=== PATIENT | female | born 1960 | race Caucasian/White ===

== ENCOUNTER 2016-05-21 14:14 | Day surgery (SDC) | payer BC ==
[~2016-05-21 14:14] MED LIST: Depo-Medrol 40 MG/ML IM ONE; KEFZOL 1 GM IJ ONE; Sensorcaine 0.25% 10 ML IJ ONE; Sodium Chloride 0.9(Preservative Free) 10 ML IJ ONE
[2016-05-21 16:33] VITALS: BP 117/76; PULSE 94; O2SAT 94
[2016-05-21] MEDS ORDERED: Lactated Ringers 1,000 ML IV SCH (17:00)
--- NOTE | 2016-05-22 08:43 | XRAY ---
8 seconds fluoroscopy time in surgery for caudal LOUIS.
--- NOTE | 2016-05-22 11:00 | XRAY ---
Indication: Caudal LOUIS. Intraoperative fluoroscopy was provided for 8 seconds. 1 digital spot lateral sacrum image submitted for interpretation demonstrates posterior spinal needle with the tip projecting mid sacral level. Correlate with intraoperative findings/report.
== END 2016-05-21 17:58 | disposition home or self-care (01) ==
LOC: SDC-PAIN 14:14
PROVIDERS: ATTEND Pain Medicine Interventional Pain Medicine
DX: M54.16 Radiculopathy, lumbar region (principal); M48.02 Spinal stenosis, cervical region
CPT/HCPCS: 62323; 72020; 77003; J0690; J1030; Q9967

== ENCOUNTER 2016-08-04 16:25 | Emergency (ER) | payer BC ==
[2016-08-04 16:36] VITALS: BP 129/73; O2SAT 98
[2016-08-04] MEDS ORDERED: Adacel Vial IM ONE ×2 (16:51→16:54)
--- NOTE | 2016-08-04 16:51 | ERPHSYRPT ---
- History of Present Illness Time Seen by Provider: 08/04/16 16:37 Source: patient, family Exam Limitations: no limitations Patient Subjective Stated Complaint: pt got stuck with andres dale thorn today and now is worried finger is infected , she states her thumb is purple Triage Nursing Assessment: right thumb with medicine on finger, medicine washed off.no redenss or swelling no thorn seen , has bruising noted to thumb Physician History: The patient is a 56-year-old female who is right-handed and stuck her right thumb on a andres dale torn this morning about 6 hours ago. She has pain in her right thumb. She went to [facility] to have it looked at but was unable to see them today. She was told to come to the emergency room. Her tetanus vaccination is greater than 5 years. Her past medical history is hypertension, migraine headache, and anxiety. Timing/Duration: today, hour(s) (6) Quality: painful Severity: mild Location: extremities (right thumb) Possible Causes: other (andres thorn) Associated Symptoms: other (FB) Allergies/Adverse Reactions: latex Allergy (Intermediate, Verified 08/04/16 16:37) Rash sumatriptan [From Imitrex] Allergy (Intermediate, Verified 08/04/16 16:37) Rash, swallowing diff sumatriptan succinate [From Imitrex] Allergy (Intermediate, Verified 08/04/16 16 :37) Rash Iodinated Contrast Media - Oral and Allergy (Verified 08/04/16 16:37) rash, break out, itching morphine Adverse Reaction (Intermediate, Verified 08/04/16 16:37) Nausea Home Medications: Cetirizine HCl 10 mg PO DAILY 11/14/15 [History] Hydrocodone Bit/Acetaminophen [Hydrocodon-Acetaminoph 7.5-325] 1 each PO Q4HPRN PRN 11/14/15 [History] Escitalopram Oxalate [Lexapro] 40 mg PO DAILY 11/20/15 [History] Alprazolam 0.25 mg [xanAX 0.25 MG] 0.25 mg PO UD PRN 02/27/16 [History] Isomethepten/Caf/Acetaminophen [Prodrin Caplet] 1 each PO UD 02/27/16 [History] Lamotrigine [Lamictal] 75 mg PO DAILY 02/27/16 [History] Cyanocobalamin (Vitamin B-12) [Vitamin B12] 2,500 mcg PO DAILY 04/25/16 [History ] Lansoprazole [Prevacid] 30 mg PO DAILY 04/25/16 [History] Linaclotide [Linzess] 290 mcg PO BID 04/25/16 [History] Acyclovir 400 mg PO UD 05/21/16 [History] Modafinil 100 mg [Provigil 100MG Tablet] 100 mg PO UD 05/21/16 [History] Modafinil 100 mg [Provigil 100MG Tablet] 200 mg PO UD 05/21/16 [History] Promethazine HCl 25 mg [Phenergan 25 mg] 25 mg PO Q4HPRN PRN 05/21/16 [ History] Hx Tetanus, Diphtheria Vaccination/Date Given: No Hx Influenza Vaccination/Date Given: Yes Hx Pneumococcal Vaccination/Date Given: No Immunizations Up to Date: Yes - Review of Systems Constitutional: No Fever, No Chills Eyes: No Symptoms Ears, Nose, & Throat: No Symptoms Respiratory: No Cough, No Dyspnea Cardiac: No Chest Pain, No Edema, No Syncope Abdominal/Gastrointestinal: No Abdominal Pain, No Nausea, No Vomiting, No Diarrhea Genitourinary Symptoms: No Dysuria Musculoskeletal: No Back Pain, No Neck Pain Skin: Other (FB) Neurological: No Dizziness, No Focal Weakness, No Sensory Changes Psychological: No Symptoms Endocrine: No Symptoms Hematologic/Lymphatic: No Symptoms Immunological/Allergic: No Symptoms All Other Systems: Reviewed and Negative - Past Medical History Pertinent Past Medical History: Yes Neurological History: Migraines ENT History: No Pertinent History Cardiac History: No Pertinent History Respiratory History: No Pertinent History Endocrine Medical History: No Pertinent History Musculoskeletal History: No Pertinent History GI Medical History: No Pertinent History History: No Pertinent History Psycho-Social History: Anxiety Female Reproductive Disorders: Endometriosis - Past Surgical History Past Surgical History: Yes Neuro Surgical History: No Pertinent History Cardiac: No Pertinent History Respiratory: No Pertinent History Gastrointestinal: No Pertinent History Genitourinary: No Pertinent History Musculoskeletal: Orthopedic Surgery Female Surgical History: Hysterectomy Other Surgical History: left knee x four scopes and acl,right knee lap.scope x two, back jan 2011 L4-L5 bone scraping - Social History Smoking Status: Current every day smoker How long have you smoked: 35yrs Exposure to second hand smoke: Yes Drug Use: none Patient Lives Alone: No - Female History Hx Last Menstrual Period: hyster - Nursing Vital Signs Nursing Vital Signs: Initial Vital Signs Temperature 98.1 F Temperature Source Oral Pulse Rate 78 Respiratory Rate 16 Blood Pressure [Right Arm] 129/73 Pain Intensity 3 - Physical Exam General Appearance: no apparent distress, alert Eye Exam: PERRL/EOMI, eyes nml inspection Ears, Nose, Throat Exam: normal ENT inspection, pharynx normal, moist mucous membranes Neck Exam: normal inspection, non-tender, supple, full range of motion Respiratory Exam: normal breath sounds, lungs clear, No respiratory distress Cardiovascular Exam: regular rate/rhythm, normal heart sounds Gastrointestinal/Abdomen Exam: soft, mass, No tenderness Pelvic Exam: not done Rectal Exam: not done Back Exam: normal inspection, normal range of motion, No CVA tenderness, No vertebral tenderness Extremity Exam: normal inspection, normal range of motion Neurologic Exam: alert, oriented x 3, cooperative, normal mood/affect, sensation nml, No motor deficits Skin Exam: other (Examination of the palmar surface of the right thumb reveals an extremely tiny foreign body consistent with a small andres thorn embedded in the skin.) SpO2 Interpretation: normal SpO2: 98 Oxygen Delivery: Room Air - Progress Progress: improved Progress Note: 08/04/16 16:56 A 22-gauge needle was used to carefully excised and removed the tiny roast on the palmar surface of the superficial skin on the right thumb. The patient tolerated the procedure well. There are no complications. - Departure Time of Disposition: 16:57 Departure Disposition: Home Clinical Impression: Foreign body in skin Condition: Stable Critical Care Time: No Additional Instructions: A tiny thorn was removed from your right thumb in the ER. You were given a tetanus vaccination in the ER. Keep the area clean and dry. Take Tylenol and ibuprofen as needed for pain.
[2016-08-04 17:10] VITALS: PULSE 70
== END 2016-08-04 17:09 | disposition home or self-care (01) ==
LOC: ED 16:25
DX: S60.351A Superficial foreign body of right thumb, initial encounter (principal); W22.8XXA Striking against or struck by other objects, initial encounter
CPT/HCPCS: 90471; 90715; 99284

== ENCOUNTER 2016-08-20 08:29 | Day surgery (SDC) | payer BC ==
[~2016-08-20 08:29] MED LIST changes: +DIPRIVAN 200 MG/20 ML IV ONE; -Depo-Medrol 40 MG/ML IM ONE; -KEFZOL 1 GM IJ ONE; +Kenalog-40 IM ONE; +Lactated Ringers 1,000 ML IV ONE; -Sodium Chloride 0.9(Preservative Free) 10 ML IJ ONE
--- NOTE | 2016-08-20 11:18 | XRAY ---
Indication: Left L3-S1 MBB. Intraoperative fluoroscopy was provided for 7 seconds. Single digital spot image submitted for interpretation demonstrates posterior spinal needles with the tips projecting over the expected course of the left L3-S1 nerve roots. Correlate with intraoperative findings/report.
--- NOTE | 2016-08-20 14:56 | XRAY ---
7 seconds fluoroscopy time in surgery for left L3-S1 MBB.
== END 2016-08-20 11:15 | disposition home or self-care (01) ==
LOC: SDC-PAIN 08:29
PROVIDERS: ATTEND Pain Medicine Interventional Pain Medicine
DX: M54.16 Radiculopathy, lumbar region (principal); M48.02 Spinal stenosis, cervical region; Z79.891 Long term (current) use of opiate analgesic
CPT/HCPCS: 64493; 64494; 64495; 72020; 77003; J2704; J3301

== ENCOUNTER 2017-03-03 18:51 | Emergency (ER) | payer OTHER ==
[2017-03-03 19:13] VITALS: O2SAT 95
[2017-03-03] MEDS ORDERED: TORAdol 30 mg Injection IV ONE (20:23)
[2017-03-03] MEDS ORDERED: Sodium Chloride 0.9% 1000 ML 1,000 ML IV STA (20:25)
--- NOTE | 2017-03-03 20:30 | ERPHSYRPT ---
- History of Present Illness Time Seen by Provider: 03/03/17 20:20 Historian: patient Exam Limitations: no limitations Patient Subjective Stated Complaint: Patient stated that she started having pain on Thursday and went to Dr. Hansen yesterday and did a block on the left side of back due to other pain she has. She told him about the pain on the right and he said that they weren't going to worry about that side right now. The pain got to severe tonite and couldn't get any relief. Pt also applied a lidocaine patch to her right upper thigh. Triage Nursing Assessment: Pt A&O x3, came in with a wheelchair, walks with a antoine slowly, lungs clear, skin clear, deep bilateral dorsal pedis pulses, appears to be in severe pain in the RLQ of abdomen especially when palpated. Patient took pain pill and sleeping pill at approximately 1730 tonite. Patient is also wearing a lidocaine patch. Physician History: 56-year-old white female with history of migraines diverticulosis irritable bowel endometriosis and anxiety Who recently saw Dr. Parker for pain control and injection in her back. Arrives with complaint of pain in her right lower quadrant right flank radiating down her right leg symptoms since Thursday 3 days ago. Patient states she was seen by Dr. Hansen yesterday and received the injection in her back. Patient has not had any vomiting denies dysuria hematuria Patient does use a lidocaine patch she is also on Canute. Past medical history includes migraines, diverticulosis, irritable bowel, endometriosis, anxiety, chronic pain Past surgical history includes hysterectomy, orthopedic surgery left knee surgery back surgery Timing/Duration: day(s) Activities at Onset: none (3 days) Quality: aching, cramping Abdominal Pain Onset Location: RLQ, other (right flank) Pain Radiation: flank Severity of Pain-Max: moderate Severity of Pain-Current: moderate Modifying Factors: Improves With: other (injection in back for chronic pain yesterday, Canute) Associated Symptoms: back, No fever/chills, No fatigue, No headache, No heartburn, No loss of appetite, No nausea, No neck pain, No rash, No shortness of breath, No syncope, No vomiting, No weakness Previous symptoms: no prior history Allergies/Adverse Reactions: latex Allergy (Intermediate, Verified 08/04/16 16:37) Rash sumatriptan [From Imitrex] Allergy (Intermediate, Verified 08/04/16 16:37) Rash, swallowing diff sumatriptan succinate [From Imitrex] Allergy (Intermediate, Verified 08/04/16 16 :37) Rash Iodinated Contrast- Oral and IV Dye Allergy (Verified 08/04/16 16:37) rash, break out, itching morphine Adverse Reaction (Intermediate, Verified 08/04/16 16:37) Nausea Home Medications: Lubiprostone [Amitiza] 24 mcg PO DAILY 12/01/16 [History] Venlafaxine HCl ER 75 mg [Effexor XR 75 MG] 150 mg PO DAILY 12/01/16 [ History] Bisacodyl [Dulcolax] 5 mg PO 03/03/17 [History] Buspirone HCl [Buspar] 10 mg PO TID 03/03/17 [History] Cetirizine HCl [Allergy Relief] 10 mg PO DAILY 03/03/17 [History] Eszopiclone 2 mg PO DAILY 03/03/17 [History] Hydrocodone Bit/Acetaminophen [Hydrocodon-Acetaminophn 10-325] 1 each PO Q4- 6HPRN PRN 03/03/17 [History] Lamotrigine [Lamotrigine ER] 150 tab PO DAILY 03/03/17 [History] Nicotine [Nicotine Patch] 1 each DAILY 03/03/17 [History] Spironolactone 25 mg PO DAILY 03/03/17 [History] Hx Tetanus, Diphtheria Vaccination/Date Given: No Hx Influenza Vaccination/Date Given: Yes Hx Pneumococcal Vaccination/Date Given: No - Review of Systems Constitutional: No Fever, No Chills Eyes: No Symptoms Ears, Nose, & Throat: No Symptoms Respiratory: No Cough, No Dyspnea Cardiac: No Chest Pain, No Edema, No Syncope Abdominal/Gastrointestinal: Abdominal Pain, No Nausea, No Vomiting, No Diarrhea , No Constipation, No Hematemesis, No Hematochezia, No Melena, No Dysphagia, No Appetite Changes Genitourinary Symptoms: Flank Pain (right flank pain), No Dysuria, No Frequency , No Hematuria, No Hesitancy, No Incontinence, No Urgency, No Urinary Retention , No Menorrhagia, No , No Vaginal Bleeding, No Vaginal Discharge, No Vaginal Itching Musculoskeletal: Back Pain (right flank pain ) Skin: No Rash Neurological: No Dizziness, No Focal Weakness, No Sensory Changes Psychological: No Symptoms Endocrine: No Symptoms All Other Systems: Reviewed and Negative - Past Medical History Pertinent Past Medical History: Yes Neurological History: Migraines ENT History: No Pertinent History Cardiac History: No Pertinent History Respiratory History: No Pertinent History Endocrine Medical History: No Pertinent History Musculoskeletal History: No Pertinent History GI Medical History: Diverticulosis, Irritable Bowel History: No Pertinent History Psycho-Social History: Anxiety Female Reproductive Disorders: Endometriosis - Past Surgical History Past Surgical History: Yes Neuro Surgical History: No Pertinent History Cardiac: No Pertinent History Respiratory: No Pertinent History Gastrointestinal: No Pertinent History Genitourinary: No Pertinent History Musculoskeletal: Orthopedic Surgery Female Surgical History: Hysterectomy Other Surgical History: left knee x four scopes and acl,right knee lap.scope x two, back jan 2011 L4-L5 bone scraping - Social History Smoking Status: Current every day smoker How long have you smoked: 35yrs Exposure to second hand smoke: Yes Drug Use: none Patient Lives Alone: Yes - Nursing Vital Signs Nursing Vital Signs: Initial Vital Signs Temperature 98.8 F 03/03/17 19:12 Pulse Rate 111 H 03/03/17 19:12 Blood Pressure 125/83 03/03/17 19:12 O2 Sat by Pulse Oximetry 95 03/03/17 19:12 Pain Scale Pain Intensity 8 - Physical Exam General Appearance: mild distress Eye Exam: PERRL/EOMI, eyes nml inspection Ears, Nose, Throat Exam: normal ENT inspection, pharynx normal, moist mucous membranes Neck Exam: normal inspection, non-tender, supple, full range of motion Respiratory Exam: normal breath sounds, lungs clear, No respiratory distress Cardiovascular Exam: regular rate/rhythm, normal heart sounds Gastrointestinal/Abdomen Exam: soft, normal bowel sounds, tenderness (right lower quadrant tenderness), No distention, No mass, No guarding, No ecchymosis, No pulsatile mass, No rebound, No hernia, No hepatomegaly, No organomegaly, No splenomegaly Back Exam: CVA tenderness (right flank tenderness) Extremity Exam: normal inspection, normal range of motion, pelvis stable Neurologic Exam: alert, oriented x 3, cooperative, normal mood/affect, nml cerebellar function, sensation nml, No motor deficits Skin Exam: normal color, warm, dry SpO2 Interpretation: normal (95%) SpO2: 95 Oxygen Delivery: Room Air - Course Nursing assessment & vital signs reviewed: Yes - CT Exams Abdomen/Pelvis CT Interpretation: Discussed w/radiologist (CT abdomen and pelvis: Compared to January, new moderate diffuse fecal stasis without obstruction. Stable 1 cm left adrenal adenoma. Normal appendix and ileocecal junction. Nothing acute. Also tiny 5 mm left lobe hepatic cyst) Ordered Tests: Active Orders 24 hr Category Date Time Status IV Insertion STAT Care 03/03/17 20:23 Active ABDOMEN AND PELVIS W/0 CONTRAS [CT] Stat Exams 03/03/17 20:24 Taken AMYLASE Stat Lab 03/03/17 20:38 Completed CBC W DIFF Stat Lab 03/03/17 20:38 Completed CMP Stat Lab 03/03/17 20:38 Completed CULTURE,URINE Stat Lab 03/03/17 22:08 Received LIPASE Stat Lab 03/03/17 20:38 Completed UA W/ MICROSCOPIC Stat Lab 03/03/17 22:08 Completed Medication Summary Discontinued Medications Generic Name Dose Route Start Last Admin Trade Name Travis PRN Reason Stop Dose Admin Fentanyl Citrate 50 mcg 03/03/17 22:17 03/03/17 22:25 Sublimaze 100 Mcg/2 Ml IV 03/03/17 22:18 50 mcg STAT ONE Administration Fentanyl Citrate Confirm 03/03/17 22:23 Sublimaze 100 Mcg/2 Ml Administered 03/03/17 22:24 Dose 100 mcg .ROUTE .STK-MED ONE Sodium Chloride 1,000 mls @ 999 mls/hr 03/03/17 20:25 03/03/17 20:35 Sodium Chloride 0.9% 1000 Ml IV 03/03/17 21:25 999 mls/hr .Q1H1M STA Administration Sodium Chloride Confirm 03/03/17 20:31 Sodium Chloride 0.9% 1000 Ml Administered 03/03/17 20:32 Dose 1,000 mls @ ud .ROUTE .STK-MED ONE Ketorolac Tromethamine 30 mg 03/03/17 20:23 03/03/17 20:35 Toradol 30 Mg Injection IV 03/03/17 20:24 30 mg STAT ONE Administration Ketorolac Tromethamine Confirm 03/03/17 20:31 Toradol 30 Mg Injection Administered 03/03/17 20:32 Dose 30 mg .ROUTE .STK-MED ONE Lab/Rad Data: Laboratory Result Diagrams 03/03/17 20:38 03/03/17 20:38 Laboratory Results 03/03/17 03/03/17 03/03/17 Range/Units 22:08 20:38 20:38 WBC 7.2 (4.0-10.5) K/mm3 RBC 4.37 (4.1-5.4) M/mm3 Hgb 13.5 (12.0-16.0) gm/dl Hct 41.4 (35-47) % MCV 94.7 (78-100) fl MCH 30.9 (26-32) pg MCHC 32.6 (32-36) g/dl RDW 12.6 (11.5-14.0) % Plt Count 274 (150-450) K/mm3 MPV 9.3 (6-9.5) fl Gran % 44.8 (36.0-66.0) % Lymphocytes % 43.4 (24.0-44.0) % Monocytes % 8.7 (0.0-12.0) % Eosinophils % 2.7 (0.00-5.0) % Basophils % 0.4 (0.0-0.4) % Basophils # 0.03 (0-0.4) Sodium 142 (136-145) mEq/L Potassium 3.9 (3.5-5.1) mEq/L Chloride 104 (98-107) mEq/L Carbon Dioxide 27.4 (21-32) mEq/L Anion Gap 14.2 (5-15) MEQ/L BUN 8 L (9-20) mg/dL Creatinine 0.70 (0.55-1.30) mg/dl Estimated GFR > 60 ML/MIN Glucose 96 (70-110) MG/DL Calcium 8.6 (8.5-10.1) mg/dL Total Bilirubin 0.10 L (0.2-1.0) mg/dL AST 14 L (15-37) U/L ALT 25 (12-78) U/L Alkaline Phosphatase 76 (46-116) U/L Serum Total Protein 7.1 (6.4-8.2) gm/dL Albumin 3.7 (3.4-5.0) g/dL Amylase 49 (25-115) U/L Lipase 119 (73-393) U/L Ur Collection Type VOID Urine Color YELLOW (YELLOW) Urine Appearance CLEAR (CLEAR) Urine pH 6.0 (5-6) Ur Specific [place] 1.015 (1.005-1.025) Urine Protein NEGATIVE (Negative) Urine Ketones NEGATIVE (NEGATIVE) Urine Blood TRACE NON-HEM (0-5) [place]/ul Urine Nitrite NEGATIVE (NEGATIVE) Urine Bilirubin NEGATIVE (NEGATIVE) Urine Urobilinogen NORMAL (0-1) mg/dL Ur Leukocyte Esterase TRACE (NEGATIVE) Urine Microscopic RBC 2-5 (0-2) /HPF Urine Microscopic WBC 2-5 (0-5) /HPF Ur Epithelial Cells MODERATE (FEW) /HPF Urine Bacteria MODERATE (NEGATIVE) /HPF Urine Mucus MODERATE (NEGATIVE) /HPF Urine Culture Reflexed YES (NO) Urine Glucose NEGATIVE (NEGATIVE) mg/dL Specimen Received 03/03/17 2210 - Progress Progress: improved Progress Note: 03/03/17 22:[address] Patient with essentially normal CT abdomen and pelvis appendix is normal CT shows fecal stasis with a tiny hepatic cyst. CBC CMP are normal. Awaiting urinalysis. Patient with improvement but not pain free after receiving Toradol. Patient chronically on Canute at home sees a pain certified residential medication aide. Considering patient continue Miralax at home consider Dulcolax clear fluids. Pain medicines as prescribed by her family doctor Patient states that she got a rash with morphine in the past 03/03/17 22:29 patient given fentanyl for pain. Labs are all negative. Will plan to discharge clear fluids, pain medicines as prescribed by her pain traffic control signaler patient will need to take Scarlet lax at home. Will write for Dulcolax. Patient will need to follow-up with her family doctor. 03/03/17 22:37 Patient feeling better with IV fluids, Toradol and fentanyl. Patient states she does not want any more pain medications at this time CT does not show any acute abdominal findings other than constipation. Patient does state that she has merely some Dulcolax at home. Patient also with hydrocodone 10/325 at home. Patient also on Lunesta at home. Will discharge patient. - Departure Time of Disposition: 22:39 Departure Disposition: Home Clinical Impression: History of chronic pain Abdominal pain Qualifiers: Abdominal location: right lower quadrant Qualified Code(s): R10.31 - Right lower quadrant pain Constipation Qualifiers: Constipation type: unspecified constipation type Qualified Code(s): K59.00 - Constipation, unspecified Condition: Fair Critical Care Time: No Referrals: Provider,Unknown [Primary Care Provider] - Instructions: Abdominal Pain-Adult Additional Instructions: Return home. Plenty of fluids clear fluids only 24-48 hours if abdominal pain. Canute as prescribed by your pain traffic control signaler Lunesta as prescribed by your family doctor Miralax 1 scoop in 8 ounces of water daily( you have this medication) Follow-up with your family doctor call tomorrow if no better. Return for acute distress or for severe symptoms.
[2017-03-03] MEDS ORDERED: Sodium Chloride 0.9% 1000 ML 1,000 ML ONE (20:31)
[2017-03-03] MEDS ORDERED: TORAdol 30 mg Injection ONE (20:31)
[2017-03-03 20:42] LABS: BASOPHIL % 0.4 % (0.0-0.4); Eosinophil % 2.7 % (0.00-5.0); Granulocytes % 44.8 % (36.0-66.0); Lymphocytes % 43.4 % (24.0-44.0); Mean Cell Volume 94.7 fl (78-100); Mean Corpuscular Hemoglobin 30.9 pg (26-32); Mean Platelet Volume 9.3 fl (6-9.5); Monocytes % 8.7 % (0.0-12.0); Platelet Count 274 K/mm3 (150-450); Red Blood Count 4.37 M/mm3 (4.1-5.4); Red Cell Distribution Width 12.6 % (11.5-14.0); White Blood Count 7.2 K/mm3 (4.0-10.5)
[2017-03-03 21:01] LABS: ALBUMIN 3.7 g/dL (3.4-5.0); ALKALINE PHOSPHATASE 76 U/L (46-116); ANION GAP 14.2 MEQ/L (5-15); BLOOD UREA NITROGEN 8 mg/dL (9-20); CHLORIDE 104 mEq/L (98-107); Carbon Dioxide 27.4 mEq/L (21-32); Glucose 96 MG/DL (70-110); LIPASE 119 U/L (73-393); Potassium 3.9 mEq/L (3.5-5.1); SGOT/AST 14 U/L (15-37); SGPT/ALT 25 U/L (12-78); SODIUM 142 mEq/L (136-145); Total Protein 7.1 gm/dL (6.4-8.2)
[2017-03-03] MEDS ORDERED: SUBLIMAZE 100 MCG/2 ML IV ONE (22:17)
[2017-03-03 22:23] LABS: Bilirubin NEGATIVE (NEGATIVE); Blood TRACE NON-HEM Ery/ul (0-5); COMPLETE URINE MICROSCOPIC? YES; Collection Type VOID; Glucose NEGATIVE (NEGATIVE); Leukocyte Esterase TRACE (NEGATIVE)
[2017-03-03] MEDS ORDERED: SUBLIMAZE 100 MCG/2 ML ONE (22:23)
[2017-03-03 22:24] LABS: ADD URINE CULTURE? YES (NO); Bacteria MODERATE /HPF (NEGATIVE); Epithelial Cells MODERATE /HPF (FEW); Mucus MODERATE /HPF (NEGATIVE)
[2017-03-03 22:50] VITALS: BP 130/78; PULSE 73
--- NOTE | 2017-03-04 08:41 | XRAY ---
Indication: Right lower quadrant pain and nausea for 4 days. History IBS. Multiple contiguous axial images obtained through the abdomen and pelvis without contrast as ordered. Comparison: February 22, 2014. Lung bases demonstrates minimal bibasilar fibrosis/scarring. No infiltrate or effusion. Heart is not enlarged. A few left infrahilar calcified nodes. Noncontrasted stomach and bowel loops appear nonobstructed. There is mild/moderate diffuse scattered colonic fecal debris. Normal appendix and ileocecal junction. No free fluid/air. Previous hysterectomy. Stable 5 mm left lobe hepatic cyst and 1 cm left adrenal adenoma. Remaining liver, gallbladder, pancreas, spleen, right adrenal gland, kidneys, ureters, and bladder appear unremarkable for noncontrast exam. Mild aortoiliac calcifications without AAA. Osseous structures intact with mild degenerative changes throughout the spine. Bilateral gluteal calcified injection granulomas. Impression: 1. Fecal stasis without obstruction. 2. No acute intra-abdominal/pelvic abnormalities on this noncontrast exam. 3. Stable tiny hepatic cyst and left adrenal adenoma. CT DI 23.38
== END 2017-03-03 22:55 | disposition home or self-care (01) ==
LOC: ED 18:51
DX: R10.31 Right lower quadrant pain (principal); K59.00 Constipation, unspecified; G89.29 Other chronic pain
CPT/HCPCS: 36000; 36415; 74176; 80053; 81000; 82150; 83690; 85025; 87086; 96360; 96365; 96366; 96374; 96375; 99284; J1885; J3010

== ENCOUNTER 2017-10-04 22:55 | Emergency (ER) | payer OTHER ==
[2017-10-04] MEDS ORDERED: BABY ASPIRIN 81 MG CHEW PO ONE (23:01)
[2017-10-04] MEDS ORDERED: SUBLIMAZE 100 MCG/2 ML IV ONE ×2 (23:13→23:40)
[2017-10-04] MEDS ORDERED: Phenergan 25 MG INJ IV ONE (23:13)
[2017-10-04] MEDS ORDERED: Phenergan 25 MG INJ ONE (23:16)
[2017-10-04] MEDS ORDERED: BABY ASPIRIN 81 MG CHEW ONE (23:16)
[2017-10-04] MEDS ORDERED: SUBLIMAZE 100 MCG/2 ML ONE ×2 (23:17→23:44)
[2017-10-04 23:19] LABS: BASOPHIL % 0.4 % (0.0-0.4); Basophil (Absolute #) 0.04 (0-0.4); Eosinophil % 3.3 % (0.00-5.0); Eosinophil (Absolute #) 0.36 (0-0.5); Granulocyte Absolute (ANC) 5.23 (1.4-6.9); Granulocytes % 47.6 % (36.0-66.0); Hematocrit 44.1 % (35-47); Hemoglobin 15.1 gm/dl (12.0-16.0); Lymphocyte (Absolute #) 4.38 (1.0-4.6); Lymphocytes % 39.9 % (24.0-44.0); Mean Cell Volume 92.6 fl (78-100); Mean Corpuscular Hemoglobin 31.7 pg (26-32); Mean Corpuscular Hgb Concent. 34.2 g/dl (32-36); Monocyte (Absolute #) 0.96 (0.0-1.3); Monocytes % 8.8 % (0.0-12.0); Platelet Count 345 K/mm3 (150-450); Red Blood Count 4.76 M/mm3 (4.1-5.4); Red Cell Distribution Width 12.9 % (11.5-14.0)
--- NOTE | 2017-10-04 23:20 | ERPHSYRPT ---
- History of Present Illness Time Seen by Provider: 10/04/17 23:14 Historian: patient Exam Limitations: no limitations Physician History: This is a 57-year-old white female with history of migraines, diverticulosis, irritable bowel, anxiety, endometriosis, back pain Who states she has had a recent back surgery. She arrives with complaints of pain in the left anterior chest underneath her left breast which is sharp worse with breathing and movement symptoms for 30 minutes prior to arrival. Patient states she drank baking soda and water prior to arrival. Patient denies shortness of breath patient denies nausea no vomiting. Past medical history includes back pain, migraines, diverticulosis, irritable bowel, anxiety, endometriosis, hiatal hernia, gallbladder disease. Past surgical history includes orthopedic surgery, hysterectomy, left knee surgery, anterior cruciate ligament right knee, back surgery L4-L5, Timing/Duration: today (30 minutes) Activities at Onset: none Quality: sharpness Location: other (left anterior chest) Chest Pain Radiation: neck (throat) Severity of Pain-Max: moderate Severity of Pain-Current: moderate Modifying Factors: Improves With: antacids Associated Symptoms: hurts to breathe, No nausea, No vomiting, No palpitations, No heartburn, No abdominal pain, No shortness of breath, No cough, No diaphoresis, No chills, No fever, No fatigue, No weakness, No swelling/lump in chest, No syncope, No rash, No headache, No dizziness, No edema, No back pain Prior Chest Pain/Cardiac Workup: no prior chest pain Nitro Today/Relief: no nitro taken today Aspirin Treatment Today: 81 mg x 4, provided by ED Allergies/Adverse Reactions: latex Allergy (Intermediate, Verified 08/04/16 16:37) Rash sumatriptan [From Imitrex] Allergy (Intermediate, Verified 08/04/16 16:37) Rash, swallowing diff sumatriptan succinate [From Imitrex] Allergy (Intermediate, Verified 08/04/16 16 :37) Rash Iodinated Contrast- Oral and IV Dye Allergy (Verified 08/04/16 16:37) rash, break out, itching morphine Adverse Reaction (Intermediate, Verified 08/04/16 16:37) Nausea Home Medications: Lubiprostone [Amitiza] 24 mcg PO DAILY 12/01/16 [History] Buspirone HCl [Buspar] 10 mg PO TID 03/03/17 [History] Cetirizine HCl [Allergy Relief] 10 mg PO DAILY 03/03/17 [History] Eszopiclone 2 mg PO DAILY 03/03/17 [History] Hydrocodone Bit/Acetaminophen [Hydrocodon-Acetaminophn 10-325] 1 each PO Q6H PRN PRN 03/03/17 [History] Lamotrigine [Lamotrigine ER] 150 tab PO DAILY 03/03/17 [History] Nicotine [Nicotine Patch] 1 each DAILY 03/03/17 [History] Spironolactone 25 mg PO DAILY 03/03/17 [History] Baclofen 10 mg [Lioresal 10 mg] 10 mg PO QID 07/14/17 [History] Gabapentin [Neurontin] 100 mg PO TID 07/14/17 [History] Omeprazole 40 mg PO DAILY 07/14/17 [History] Ranitidine HCl [Zantac] 150 mg PO BID 07/14/17 [History] Duloxetine HCl [Cymbalta] 60 mg PO DAILY 09/08/17 [History] Promethazine HCl 25 mg [Phenergan 25 mg] 25 mg PO Q6-8HPRN PRN 09/08/17 [ History] Hx Tetanus, Diphtheria Vaccination/Date Given: No Hx Influenza Vaccination/Date Given: Yes Hx Pneumococcal Vaccination/Date Given: No - Review of Systems Constitutional: No Fever, No Chills Eyes: No Symptoms Ears, Nose, & Throat: No Symptoms Respiratory: Other (pain with breathing and movementleft anterior chest) Cardiac: Chest Pain Abdominal/Gastrointestinal: No Abdominal Pain, No Nausea, No Vomiting, No Diarrhea Genitourinary Symptoms: No Dysuria Musculoskeletal: No Back Pain, No Neck Pain Skin: No Rash Neurological: No Dizziness, No Focal Weakness, No Sensory Changes Psychological: No Symptoms Endocrine: No Symptoms All Other Systems: Reviewed and Negative - Past Medical History Pertinent Past Medical History: Yes Neurological History: Migraines, Peripheral Neuropathy ENT History: No Pertinent History Cardiac History: No Pertinent History Respiratory History: No Pertinent History Endocrine Medical History: No Pertinent History Musculoskeletal History: Degenerative Disk Disease, Osteoarthritis GI Medical History: Diverticulosis, Irritable Bowel History: No Pertinent History Psycho-Social History: Anxiety Female Reproductive Disorders: Endometriosis Other Medical History: IBS, hernia, hiatial hernia, Multiple B knee surgeries. She notes having multiple injections and nerve blocks. - Past Surgical History Past Surgical History: Yes Neuro Surgical History: No Pertinent History Cardiac: No Pertinent History Respiratory: No Pertinent History Gastrointestinal: No Pertinent History Genitourinary: No Pertinent History Musculoskeletal: Orthopedic Surgery Female Surgical History: Hysterectomy Other Surgical History: left knee x four scopes and acl,right knee lap.scope x two, back jan 2011 L4-L5 bone scraping - Social History Smoking Status: Current every day smoker How long have you smoked: 35yrs Exposure to second hand smoke: Yes Drug Use: none Patient Lives Alone: Yes - Nursing Vital Signs Nursing Vital Signs: Initial Vital Signs Pulse Rate 104 H 10/04/17 23:02 Respiratory Rate 22 10/04/17 23:02 Blood Pressure 146/89 10/04/17 23:02 Pain Scale Pain Intensity 4 - Physical Exam General Appearance: moderate distress, alert Eye Exam: PERRL/EOMI, eyes nml inspection Ears, Nose, Throat Exam: normal ENT inspection, moist mucous membranes Neck Exam: normal inspection, non-tender, supple, full range of motion Respiratory Exam: normal breath sounds, other (pain with breathing left anterior chest) Cardiovascular Exam: regular rate/rhythm Gastrointestinal/Abdomen Exam: soft, No tenderness, No mass Back Exam: normal inspection, No CVA tenderness, No vertebral tenderness Extremity Exam: normal inspection, normal range of motion Neurologic Exam: alert, oriented x 3, cooperative, drug regulatory affairs specialist II-XII nml as tested, normal mood/affect, sensation nml, No motor deficits Skin Exam: normal color, warm, dry SpO2 Interpretation: normal (96%) Oxygen Delivery: Room Air - Course Nursing assessment & vital signs reviewed: Yes EKG Interpreted by Me: RATE (104 bpm), Sinus Rhythm, NORMAL AXIS, Other (EKG: Sinus tachycardia, moderate amount of artifact, normal axis, no acute ST or T wave changes, no acute changes as compared to July 28, 2017) - Radiology Exams Chest X-ray Interpretation: Interpreted by me (cxr: no acute disease process noted) Ordered Tests: Active Orders 24 hr Category Date Time Status Tar Worker STAT Care 10/04/17 23:01 Active EKG-ER Only STAT Care 10/04/17 23:01 Active IV Insertion STAT Care 10/04/17 23:01 Active Pulse Oximetry (ED) STAT Care 10/04/17 23:01 Active CHEST 1 VIEW (PORTABLE) Stat Exams 10/04/17 23:01 Taken AMYLASE Stat Lab 10/04/17 23:00 Completed CBC W DIFF Stat Lab 10/04/17 23:00 Completed CMP Stat Lab 10/04/17 23:00 Completed D-DIMER QUANTITATION Stat Lab 10/04/17 23:00 Completed LIPASE Stat Lab 10/04/17 23:00 Completed PROTIME WITH INR Stat Lab 10/04/17 23:00 Completed PTT Stat Lab 10/04/17 23:00 Completed TROPONIN Q3H Lab 10/04/17 23:00 Completed TROPONIN Q3H Lab 10/05/17 02:00 Completed TROPONIN Q3H Lab 10/05/17 05:15 Ordered TROPONIN Q3H Lab 10/05/17 08:15 Ordered TROPONIN Q3H Lab 10/05/17 11:15 Ordered Medication Summary Discontinued Medications Generic Name Dose Route Start Last Admin Trade Name Freq PRN Reason Stop Dose Admin Aspirin 324 mg 10/04/17 23:01 10/04/17 23:20 Baby Aspirin 81 Mg Chew PO 10/04/17 23:02 324 mg STAT ONE Administration Aspirin Confirm 10/04/17 23:16 Baby Aspirin 81 Mg Chew Administered 10/04/17 23:17 Dose 324 mg .ROUTE .STK-MED ONE Fentanyl Citrate 50 mcg 10/04/17 23:13 10/04/17 23:21 Sublimaze 100 Mcg/2 Ml IV 10/04/17 23:14 50 mcg STAT ONE Administration Fentanyl Citrate Confirm 10/04/17 23:17 Sublimaze 100 Mcg/2 Ml Administered 10/04/17 23:18 Dose 100 mcg .ROUTE .STK-MED ONE Fentanyl Citrate 50 mcg 10/04/17 23:40 10/04/17 23:46 Sublimaze 100 Mcg/2 Ml IV 10/04/17 23:41 50 mcg STAT ONE Administration Fentanyl Citrate Confirm 10/04/17 23:44 Sublimaze 100 Mcg/2 Ml Administered 10/04/17 23:45 Dose 100 mcg .ROUTE .STK-MED ONE Ketorolac Tromethamine 30 mg 10/04/17 23:59 10/05/17 00:01 Toradol 30 Mg Injection IV 10/05/17 00:00 30 mg STAT ONE Administration Ketorolac Tromethamine Confirm 10/05/17 00:00 Toradol 30 Mg Injection Administered 10/05/17 00:01 Dose 30 mg .ROUTE .STK-MED ONE Promethazine HCl 12.5 mg 10/04/17 23:13 10/04/17 23:21 Phenergan 25 Mg Inj IV 10/04/17 23:14 12.5 mg STAT ONE Administration Promethazine HCl Confirm 10/04/17 23:16 Phenergan 25 Mg Inj Administered 10/04/17 23:17 Dose 25 mg .ROUTE .STK-MED ONE Lab/Rad Data: Laboratory Result Diagrams 10/04/17 23:00 10/04/17 23:00 Laboratory Results 10/05/17 10/04/17 10/04/17 Range/Units 02:00 23:00 23:00 WBC (4.0-10.5) K/mm3 RBC (4.1-5.4) M/mm3 Hgb (12.0-16.0) gm/dl Hct (35-47) % MCV (78-100) fl MCH (26-32) pg MCHC (32-36) g/dl RDW (11.5-14.0) % Plt Count (150-450) K/mm3 MPV (6-9.5) fl Gran % (36.0-66.0) % Eos # (Auto) (0-0.5) Absolute Lymphs (auto) (1.0-4.6) Absolute Monos (auto) (0.0-1.3) Lymphocytes % (24.0-44.0) % Monocytes % (0.0-12.0) % Eosinophils % (0.00-5.0) % Basophils % (0.0-0.4) % Absolute Granulocytes (1.4-6.9) Basophils # (0-0.4) PT (9.95-12.35) SECONDS INR (0.8-3.0) APTT (25.3-37.0) SECONDS D-Dimer (215-500) ng/mL Sodium (137-145) mmol/L Potassium (3.5-5.1) mmol/L Chloride (98-107) mmol/L Carbon Dioxide (22-30) mmol/L Anion Gap (5-15) MEQ/L BUN (7-17) mg/dL Creatinine (0.52-1.04) mg/dL Estimated GFR ML/MIN Glucose (74-106) mg/dL Calcium (8.4-10.2) mg/dL Total Bilirubin (0.2-1.3) mg/dL AST (14-36) U/L ALT (0-35) U/L Alkaline Phosphatase (38-126) U/L Troponin I < 0.012 < 0.012 (0.000-0.034) ng/mL Serum Total Protein (6.3-8.2) g/dL Albumin (3.5-5.0) g/dL Amylase 54 (30-110) U/L Lipase 82 (23-300) U/L 10/04/17 10/04/17 10/04/17 Range/Units 23:00 23:00 23:00 WBC 11.0 H (4.0-10.5) K/mm3 RBC 4.76 (4.1-5.4) M/mm3 Hgb 15.1 (12.0-16.0) gm/dl Hct 44.1 (35-47) % MCV 92.6 (78-100) fl MCH 31.7 (26-32) pg MCHC 34.2 (32-36) g/dl RDW 12.9 (11.5-14.0) % Plt Count 345 (150-450) K/mm3 MPV 10.0 H (6-9.5) fl Gran % 47.6 (36.0-66.0) % Eos # (Auto) 0.36 (0-0.5) Absolute Lymphs (auto) 4.38 (1.0-4.6) Absolute Monos (auto) 0.96 (0.0-1.3) Lymphocytes % 39.9 (24.0-44.0) % Monocytes % 8.8 (0.0-12.0) % Eosinophils % 3.3 (0.00-5.0) % Basophils % 0.4 (0.0-0.4) % Absolute Granulocytes 5.23 (1.4-6.9) Basophils # 0.04 (0-0.4) PT 10.2 (9.95-12.35) SECONDS INR 0.88 (0.8-3.0) APTT 28.7 (25.3-37.0) SECONDS D-Dimer 429 (215-500) ng/mL Sodium 144 (137-145) mmol/L Potassium 3.8 (3.5-5.1) mmol/L Chloride 102 (98-107) mmol/L Carbon Dioxide 29 (22-30) mmol/L Anion Gap 16.4 H (5-15) MEQ/L BUN 9 (7-17) mg/dL Creatinine 0.66 (0.52-1.04) mg/dL Estimated GFR > 60.0 ML/MIN Glucose 125 H (74-106) mg/dL Calcium 9.6 (8.4-10.2) mg/dL Total Bilirubin 0.20 (0.2-1.3) mg/dL AST 35 (14-36) U/L ALT 45 H (0-35) U/L Alkaline Phosphatase 105 (38-126) U/L Troponin I (0.000-0.034) ng/mL Serum Total Protein 8.0 (6.3-8.2) g/dL Albumin 4.7 (3.5-5.0) g/dL Amylase (30-110) U/L Lipase (23-300) U/L - Progress Progress: improved Air Movement: fair Progress Note: 10/05/17 02:38 The patient is feeling better. She states she has a some pain, only with breathing otherwise in no acute distress. Patient is given Toradol with improvement of her pain she had also been given fentanyl a total of 100 g she had been given aspirin as well on arrival EKG normal sinus rhythm 104 bpm normal axis no acute ST or T wave changes noted troponin 2 is negative chest x-ray no acute disease process noted d-dimer is normal chemistry essentially normal with the exception of an anion gap of 16.4 and a glucose of 125 SGPT was 45 CBC showed a white count of 11 hemoglobin of 15 hematocrit of 44. Vitals are stable. Will discharge patient. Patient does have chronic hydrocodone,Lyrica, and baclofen at home. Will discharge - Departure Time of Disposition: 02:41 Departure Disposition: Home Clinical Impression: Non-cardiac chest pain Condition: Fair Critical Care Time: No Referrals: KALEN PHILLIPS [Primary Care Provider] - Additional Instructions: Return home . Rest. Plenty of fluids. Medications as prescribed by your family doctor. Pain medications as prescribed by your pain microbiology quality control technician and family doctor. Follow-up with your family doctor call and arrange appointment. Return for acute distress or for severe symptoms.
[2017-10-04 23:34] LABS: INR 0.88 (0.8-3.0)
[2017-10-04 23:37] LABS: PTT 28.7 SECONDS (25.3-37.0)
[2017-10-04 23:40] LABS: AMYLASE 54 U/L (30-110); LIPASE 82 U/L (23-300)
[2017-10-04 23:41] LABS: ALBUMIN 4.7 g/dL (3.5-5.0); ALKALINE PHOSPHATASE 105 U/L (38-126); ANION GAP 16.4 MEQ/L (5-15); BLOOD UREA NITROGEN 9 mg/dL (7-17); CHLORIDE 102 mmol/L (98-107); Calcium 9.6 mg/dL (8.4-10.2); Carbon Dioxide 29 mmol/L (22-30); Creatinine 1 0.66 mg/dL (0.52-1.04); Glucose 125 mg/dL (74-106); Potassium 3.8 mmol/L (3.5-5.1); SGOT/AST 35 U/L (14-36); SGPT/ALT 45 U/L (0-35); SODIUM 144 mmol/L (137-145)
[2017-10-04] MEDS ORDERED: TORAdol 30 mg Injection IV ONE (23:59)
[2017-10-05] MEDS ORDERED: TORAdol 30 mg Injection ONE
[2017-10-05 02:08] VITALS: O2SAT 98
[2017-10-05 02:50] VITALS: BP 130/89; PULSE 92
--- NOTE | 2017-10-05 08:41 | XRAY ---
Indication: Chest pain. Diaphoresis. Comparison: March 07, 2011. Portable chest less inflated with new left base subsegmental atelectasis/scarring. Remaining heart and lungs normal. Bony thorax intact with minimal degenerative changes.
== END 2017-10-05 02:48 | disposition home or self-care (01) ==
LOC: ED 22:55
DX: R07.89 Other chest pain (principal); R07.1 Chest pain on breathing; Z79.899 Other long term (current) drug therapy
CPT/HCPCS: 36000; 36415; 71045; 80053; 82150; 83690; 84484; 85025; 85379; 85610; 85730; 93005; 93041; 96374; 96375; 96376; 99285; J1885; J2550; J3010; A9270-GY

== ENCOUNTER 2019-10-19 10:20 | Day surgery (SDC) | payer MEDICARE ==
[2019-10-19] MEDS ORDERED: Depo-Medrol 40 MG/ML IM ONE (10:21)
[2019-10-19] MEDS ORDERED: Xylocaine 1% Vial 30 ML PF IJ ONE (10:21)
[2019-10-19] MEDS ORDERED: Sodium Chloride 0.9% 10 ML FLUSH Syringe IJ ONE (10:21)
[2019-10-19] MEDS ORDERED: DIPRIVAN 200 MG/20 ML IV ONE (11:41)
[2019-10-19] MEDS ORDERED: Ketamine HCl 50 MG/ML ONE (11:42)
--- NOTE | 2019-10-19 14:10 | XRAY ---
29 seconds fluoroscopy time in surgery right L4-S1 transforaminal [facility].
[2019-10-19] MEDS ORDERED: Lactated Ringers 1,000 ML IV ONE (14:54)
--- NOTE | 2019-10-19 15:11 | XRAY ---
Indication: Right L4-S1 transforaminal [facility]. Intraoperative fluoroscopy was provided for 29 seconds. 4 digital spot images submitted for interpretation demonstrates posterior needle tips projecting over the expected course of the right L4 and L5 nerve roots. Small amount of contrast injected for needle tip placement. Correlate with intraoperative findings/report.
== END 2019-10-19 12:10 | disposition home or self-care (01) ==
LOC: SDC-PAIN 10:20
PROVIDERS: ATTEND Psychiatry & Neurology Pain Medicine
DX: M54.16 Radiculopathy, lumbar region (principal); K21.9 Gastro-esophageal reflux disease without esophagitis; K59.00 Constipation, unspecified; M06.9 Rheumatoid arthritis, unspecified; K57.92 Diverticulitis of intestine, part unspecified, without perforation or abscess without bleeding; F41.9 Anxiety disorder, unspecified; Z79.899 Other long term (current) drug therapy
CPT/HCPCS: 64483; 64484; 72100; 77003; J1030; J2001; J2704; Q9966

== ENCOUNTER 2019-11-16 12:06 | Day surgery (SDC) | payer MEDICARE ==
[2019-11-16] MEDS ORDERED: Depo-Medrol 40 MG/ML IM ONE (12:07)
[2019-11-16] MEDS ORDERED: Sodium Chloride 0.9(Preservative Free) 10 ML IJ ONE (12:07)
[2019-11-16] MEDS ORDERED: DIPRIVAN 200 MG/20 ML IV ONE (13:24)
[2019-11-16] MEDS ORDERED: Ketamine HCl 50 MG/ML ONE (13:24)
[2019-11-16] MEDS ORDERED: Lactated Ringers 1,000 ML IV ONE (13:53)
--- NOTE | 2019-11-19 18:28 | XRAY ---
Indication: Left L4-S1 transforaminal [facility]. Intraoperative fluoroscopy was provided for 23 seconds. 4 digital spot images submitted for interpretation demonstrate posterior needle tips projected over the expected course of the left L4 and L5 nerve roots. A small amount of contrast has been injected for needle tip placement. Correlate with intraoperative findings/report.
== END 2019-11-16 14:01 | disposition home or self-care (01) ==
LOC: SDC-PAIN 12:06
PROVIDERS: ATTEND Psychiatry & Neurology Pain Medicine
DX: M54.16 Radiculopathy, lumbar region (principal); K21.9 Gastro-esophageal reflux disease without esophagitis; K59.00 Constipation, unspecified; M06.9 Rheumatoid arthritis, unspecified; F41.8 Other specified anxiety disorders; Z79.899 Other long term (current) drug therapy
CPT/HCPCS: 64483; 64484; 72100; 77003; J1030; J2704; Q9966

== ENCOUNTER 2019-12-28 11:38 | Day surgery (SDC) | payer MEDICARE ==
[2019-12-28] MEDS ORDERED: Depo-Medrol 40 MG/ML IM ONE (11:39)
[2019-12-28] MEDS ORDERED: Sodium Chloride 0.9(Preservative Free) 10 ML IJ ONE (11:39)
[2019-12-28] MEDS ORDERED: Ketamine HCl 50 MG/ML ONE (13:23)
[2019-12-28] MEDS ORDERED: DIPRIVAN 200 MG/20 ML IV ONE (13:23)
--- NOTE | 2019-12-28 15:11 | XRAY ---
Indication: Right L4-S1 transforaminal [facility]. Intraoperative fluoroscopy was provided for 55 seconds. 4 digital spot images submitted for interpretation demonstrates posterior needle tips projecting over the expected course of the right L4 and L5 nerve roots. Small amount of contrast injected for needle tip placement. Correlate with intraoperative findings/report.
[2019-12-28] MEDS ORDERED: Lactated Ringers 1,000 ML IV ONE (15:31)
--- NOTE | 2019-12-28 15:41 | XRAY ---
55 seconds fluoroscopy time in surgery for right L4-S1 transforaminal [facility].
== END 2019-12-28 14:00 | disposition home or self-care (01) ==
LOC: SDC-PAIN 11:38
PROVIDERS: ATTEND Psychiatry & Neurology Pain Medicine
DX: M54.16 Radiculopathy, lumbar region (principal); K21.9 Gastro-esophageal reflux disease without esophagitis; F41.8 Other specified anxiety disorders; K57.92 Diverticulitis of intestine, part unspecified, without perforation or abscess without bleeding; Z79.899 Other long term (current) drug therapy
CPT/HCPCS: 64483; 64484; 72100; 77003; J1030; J2704; Q9966

== ENCOUNTER 2020-06-06 10:51 | Day surgery (SDC) | payer MEDICARE ==
[2020-06-06] MEDS ORDERED: Depo-Medrol 80 MG/ML IM ONE (10:52)
[2020-06-06] MEDS ORDERED: Sodium Chloride 0.9(Preservative Free) 10 ML IJ ONE (10:52)
[2020-06-06] MEDS ORDERED: Xylocaine 1% Vial 30 ML PF IJ ONE (10:52)
[2020-06-06] MEDS ORDERED: Ketamine HCl 50 MG/ML ONE (12:28)
[2020-06-06] MEDS ORDERED: DIPRIVAN 200 MG/20 ML IV ONE (12:28)
[2020-06-06] MEDS ORDERED: BENADRYL 50 MG/ML ONE (12:30)
[2020-06-06] MEDS ORDERED: TORAdol 30 mg Injection ONE (12:48)
[2020-06-06] MEDS ORDERED: Lactated Ringers 1,000 ML IV ONE (14:05)
--- NOTE | 2020-06-06 14:56 | XRAY ---
Indication: Lumbar [facility]. Intraoperative fluoroscopy provided for 14 seconds. 2 digital spot images submitted for interpretation demonstrates midline posterior needle tip projecting just posterior to the L4-L5 interspace. Small amount of contrast injected for needle tip placement. Correlate with intraoperative findings/report.
--- NOTE | 2020-06-06 15:07 | XRAY ---
14 seconds fluoroscopy time in surgery for lumbar [facility].
== END 2020-06-06 12:56 | disposition home or self-care (01) ==
LOC: SDC-PAIN 10:51
PROVIDERS: ATTEND Psychiatry & Neurology Pain Medicine
DX: M54.16 Radiculopathy, lumbar region (principal); M06.9 Rheumatoid arthritis, unspecified; K21.9 Gastro-esophageal reflux disease without esophagitis; K59.00 Constipation, unspecified; F41.8 Other specified anxiety disorders
CPT/HCPCS: 62323; 72100; 77003; J1040; J1200; J1885; J2001; J2704; Q9966

== ENCOUNTER 2020-08-01 12:53 | Day surgery (SDC) | payer MEDICARE ==
[2020-08-01] MEDS ORDERED: Depo-Medrol 40 MG/ML IM ONE (12:54)
[2020-08-01] MEDS ORDERED: Sodium Chloride 0.9(Preservative Free) 10 ML IJ ONE (12:54)
[2020-08-01] MEDS ORDERED: Lactated Ringers 1,000 ML IV ONE (13:53)
[2020-08-01] MEDS ORDERED: Ketamine HCl 50 MG/ML ONE (15:25)
[2020-08-01] MEDS ORDERED: DIPRIVAN 200 MG/20 ML IV ONE (15:25)
--- NOTE | 2020-08-01 16:26 | XRAY ---
Indication: Right L4-S1 transforaminal [facility]. Intraoperative fluoroscopy provided for 32 seconds. 4 digital spot images submitted for interpretation demonstrates posterior needle tips projecting over the expected right L4 and L5 nerve roots. Small amount of contrast injected for needle tip placement. Correlate with intraoperative findings/report.
--- NOTE | 2020-08-01 16:30 | XRAY ---
32 seconds fluoroscopy time in surgery for right L4-S1 transforaminal [facility].
== END 2020-08-01 15:12 | disposition home or self-care (01) ==
LOC: SDC-PAIN 12:53
PROVIDERS: ATTEND Psychiatry & Neurology Pain Medicine
DX: M54.16 Radiculopathy, lumbar region (principal); K21.9 Gastro-esophageal reflux disease without esophagitis; K59.00 Constipation, unspecified; M06.9 Rheumatoid arthritis, unspecified; K57.92 Diverticulitis of intestine, part unspecified, without perforation or abscess without bleeding; F41.9 Anxiety disorder, unspecified; Z79.899 Other long term (current) drug therapy
CPT/HCPCS: 64483; 64484; 72100; 77003; J1030; J2704; Q9966

== ENCOUNTER 2020-10-31 14:21 | Day surgery (SDC) | payer MEDICARE ==
[2020-10-31] MEDS ORDERED: Depo-Medrol 40 MG/ML IM ONE (14:22)
[2020-10-31] MEDS ORDERED: Sodium Chloride 0.9(Preservative Free) 10 ML IJ ONE (14:22)
[2020-10-31] MEDS ORDERED: Lactated Ringers 1,000 ML IV ONE (14:42)
[2020-10-31] MEDS ORDERED: DIPRIVAN 200 MG/20 ML IV ONE (15:11)
--- NOTE | 2020-10-31 16:55 | XRAY ---
Indication: Left L4-S1 transforaminal [facility]. Intraoperative fluoroscopy provided for 24 seconds. 3 digital spot image submitted for interpretation demonstrates posterior needle tips projecting over the expected left L4 and L5 nerve roots. Small amount of contrast injected for needle tip placement. Correlate with intraoperative findings/report.
--- NOTE | 2020-10-31 17:01 | XRAY ---
24 seconds of fluoroscopy was used in surgery for a left L4-L5 and L5-S1 transforaminal [facility].
== END 2020-10-31 15:37 | disposition home or self-care (01) ==
LOC: SDC-PAIN 14:21
PROVIDERS: ATTEND Psychiatry & Neurology Pain Medicine
DX: M54.16 Radiculopathy, lumbar region (principal); Z79.899 Other long term (current) drug therapy; K21.9 Gastro-esophageal reflux disease without esophagitis; K59.00 Constipation, unspecified; F41.8 Other specified anxiety disorders
CPT/HCPCS: 64483; 64484; 72100; 77003; J1030; J2704; Q9966

== ENCOUNTER 2020-12-05 14:57 | Day surgery (SDC) | payer MEDICARE ==
[2020-12-05] MEDS ORDERED: LIDOCAINE HCL 2% 100 MG/5 ML IJ ONE (14:58)
[2020-12-05] MEDS ORDERED: Lactated Ringers 1,000 ML IV ONE (16:40)
[2020-12-05] MEDS ORDERED: DIPRIVAN 200 MG/20 ML IV ONE (17:19)
--- NOTE | 2020-12-05 21:12 | XRAY ---
Indication: Bilateral L4-S1 MBB. Intraoperative fluoroscopy provided for 23 seconds. Single digital spot images submitted for interpretation demonstrates posterior needle tips projecting over the left and right L4-S1 nerve roots. Correlate with intraoperative findings/report.
--- NOTE | 2020-12-06 08:39 | XRAY ---
23 seconds fluoroscopy time in surgery for bilateral L4-S1 MBB.
== END 2020-12-05 17:53 | disposition home or self-care (01) ==
LOC: SDC-PAIN 14:57
PROVIDERS: ATTEND Psychiatry & Neurology Pain Medicine
DX: M47.816 Spondylosis without myelopathy or radiculopathy, lumbar region (principal); Z79.899 Other long term (current) drug therapy
CPT/HCPCS: 72020; 77002; J2704

== ENCOUNTER 2021-01-30 13:11 | Day surgery (SDC) | payer MEDICARE ==
[2021-01-30] MEDS ORDERED: Depo-Medrol 40 MG/ML IM ONE (13:12)
[2021-01-30] MEDS ORDERED: BUPIVACAINE 0.5% VIAL IJ ONE (13:12)
[2021-01-30] MEDS ORDERED: DIPRIVAN 200 MG/20 ML IV ONE (14:52)
[2021-01-30] MEDS ORDERED: Lactated Ringers 1,000 ML IV ONE (15:23)
--- NOTE | 2021-01-30 16:41 | XRAY ---
Indication: Bilateral SI joint injection. Intraoperative fluoroscopy provided for 18 seconds. 4 digital spot images submitted for interpretation demonstrates posterior needle tip projecting over the inferior left and right SI joints. Correlate with intraoperative findings/report.
--- NOTE | 2021-01-30 16:44 | XRAY ---
18 seconds fluoroscopy time in surgery for injections of both SI joints.
== END 2021-01-30 15:06 | disposition home or self-care (01) ==
LOC: SDC-PAIN 13:11
PROVIDERS: ATTEND Psychiatry & Neurology Pain Medicine
DX: M46.1 Sacroiliitis, not elsewhere classified (principal); Z79.899 Other long term (current) drug therapy
CPT/HCPCS: 27096; 72202; 77002; G0260; J1030; J2704

== ENCOUNTER 2021-03-08 11:29 | Day surgery (SDC) | payer MEDICARE ==
[2021-03-08] MEDS ORDERED: Xylocaine 1% Vial 30 ML PF IJ ONE (11:30)
[2021-03-08] MEDS ORDERED: Decadron 4 MG INJ IV ONE (11:30)
[2021-03-08] MEDS ORDERED: Sodium Chloride 0.9% 10 ML FLUSH Syringe IJ ONE (11:30)
[2021-03-08] MEDS ORDERED: Lactated Ringers 1,000 ML IV ONE (12:12)
[2021-03-08] MEDS ORDERED: TORAdol 30 mg Injection ONE (13:07)
--- NOTE | 2021-03-08 14:11 | XRAY ---
Indication: Cervical [facility]. Intraoperative fluoroscopy provided for 32 seconds. 3 digital spot images submitted for interpretation demonstrates posterior midline needle tip posterior to the cervical thoracic junction. Small amount of contrast injected for needle tip placement. Correlate with intraoperative findings/report.
--- NOTE | 2021-03-08 14:13 | XRAY ---
32 seconds fluoroscopy time in surgery for cervical [facility].
== END 2021-03-08 13:13 | disposition home or self-care (01) ==
LOC: SDC-PAIN 11:29
PROVIDERS: ATTEND Psychiatry & Neurology Pain Medicine
DX: M54.12 Radiculopathy, cervical region (principal); K21.9 Gastro-esophageal reflux disease without esophagitis; F41.9 Anxiety disorder, unspecified; F32.9 Major depressive disorder, single episode, unspecified; K57.92 Diverticulitis of intestine, part unspecified, without perforation or abscess without bleeding; Z79.899 Other long term (current) drug therapy
CPT/HCPCS: 62321; 72040; 77003; J1100; J1885; J2001; Q9966

== ENCOUNTER 2022-09-25 00:14 | Emergency (ER) | payer MEDICARE ==
[2022-09-25] MEDS ORDERED: TETRACAINE 0.5% STERI-UNIT SOL OP ONE (00:32)
[2022-09-25] MEDS ORDERED: Eye-Stream Solution ONE (00:32)
[2022-09-25] MEDS ORDERED: Fluor-I-Strip/Ful-Flo OP ONE ×2 (00:32→01:13)
--- NOTE | 2022-09-25 00:41 | ERPHSYRPT ---
- History of Present Illness Time Seen by Provider: 09/25/22 00:41 Source: patient Exam Limitations: no limitations Patient Subjective Stated Complaint: pt states she was laying on her bed and her dog scratched her eye with her claw while trying to get a toy near her head. states pain much worse with eyes open Triage Nursing Assessment: pt alert and oriented, answers questions approp. pt ambulatory with steady gait note. pt states she is unable to open her eyes for more than a second at a time d/t pain in her rt eye. unable to do vision acuity test. unable to assess rt eye well. sclera is red and tearing noted. unable to assess pupil, iris or upper eye. Physician History: 62-year-old female presenting to emergency room after getting scratched in the eye by her dog. Patient reports pain with eye movement and blurry vision. She denies wearing contacts or history of trauma to the eye. Timing/Duration: today Location: right eye Severity: severe Apparent Injury: possibly Associated Symptoms: pain, sensitivity to light, blurred vision Visual Assistive Devices: Glasses Chemical Exposure: No Trauma: Yes Welding Arc/Tanning Bed Exposure: No Allergies/Adverse Reactions: latex Allergy (Intermediate, Verified 09/25/22 00:39) Rash sumatriptan [From Imitrex] Allergy (Intermediate, Verified 09/25/22 00:39) Rash, swallowing diff sumatriptan succinate [From Imitrex] Allergy (Intermediate, Verified 09/25/22 00:39) Rash Iodinated Contrast Media Allergy (Verified 09/25/22 00:39) rash, break out, itching morphine Adverse Reaction (Intermediate, Verified 09/25/22 00:39) Nausea Home Medications: Lubiprostone [Amitiza] 24 mcg PO DAILY 12/01/16 [History] Buspirone HCl [Buspar] 10 mg PO TID 03/03/17 [History] Cetirizine HCl [Allergy Relief] 10 mg PO DAILY 03/03/17 [History] Eszopiclone 2 mg PO DAILY 03/03/17 [History] Hydrocodone/Acetaminophen [Hydrocodon-Acetaminophn 10-325] 1 each PO Q6H PRN PRN 03/03/17 [History] Lamotrigine [Lamotrigine ER] 150 tab PO DAILY 03/03/17 [History] Nicotine [Nicotine Patch] 1 each DAILY 03/03/17 [History] Spironolactone 25 mg PO DAILY 03/03/17 [History] Baclofen 10 mg [Lioresal 10 mg] 10 mg PO QID 07/14/17 [History] Gabapentin [Neurontin] 100 mg PO TID 07/14/17 [History] Omeprazole 40 mg PO DAILY 07/14/17 [History] raNITIdine HCl [Zantac] 150 mg PO BID 07/14/17 [History] Duloxetine HCl [Cymbalta] 60 mg PO DAILY 09/08/17 [History] Promethazine HCl 25 mg [Phenergan 25 mg] 25 mg PO Q6-8HPRN PRN 09/08/17 [History] Hx Tetanus, Diphtheria Vaccination/Date Given: Yes Hx Influenza Vaccination/Date Given: No Hx Pneumococcal Vaccination/Date Given: No Travel Risk - International Travel Have you traveled outside of the country in past 3 weeks: No - Coronavirus Screening Are you exhibiting any of the following symptoms?: No Close contact with a COVID-19 positive Pt in past 14-21 Days: No - Vaccine Status Have you recieved a Covid-19 vaccination: Yes 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 - Vaccination Dates Date of 2cond Vaccination (if applicable): 2020 - Review of Systems Constitutional: No Symptoms Eyes: Eye Pain, Eye Redness, Photophobia, Tearing, Vision Changes, Foreign Body Sensation, No Discharge, No Itchy - Past Medical History Pertinent Past Medical History: Yes Neurological History: Migraines, Peripheral Neuropathy ENT History: No Pertinent History Cardiac History: No Pertinent History Respiratory History: No Pertinent History Endocrine Medical History: No Pertinent History Musculoskeletal History: Osteoarthritis GI Medical History: Diverticulosis, Irritable Bowel History: No Pertinent History Psycho-Social History: Anxiety Female Reproductive Disorders: Endometriosis Other Medical History: Two back surgeries: July 2017, August 2009; L knee 2 previous scopes, ACL repair, recent diagnosis of meniscus tear. spinal, cervical stenosis - Past Surgical History Past Surgical History: Yes Neuro Surgical History: No Pertinent History Cardiac: No Pertinent History Respiratory: No Pertinent History Gastrointestinal: No Pertinent History Genitourinary: No Pertinent History Musculoskeletal: Orthopedic Surgery Female Surgical History: Hysterectomy Other Surgical History: left knee x four scopes and acl,right knee lap.scope x two, back jan 2011 L4-L5 bone scraping - Social History Smoking Status: Current every day smoker How long have you smoked: 30+ Exposure to second hand smoke: Yes Drug Use: none Patient Lives Alone: No - Nursing Vital Signs Nursing Vital Signs: Initial Vital Signs Temperature 98.0 F 09/25/22 00:20 Pulse Rate 83 09/25/22 00:20 Respiratory Rate 16 09/25/22 00:20 Blood Pressure 89/70 09/25/22 00:20 O2 Sat by Pulse Oximetry 100 09/25/22 00:20 Pain Scale Pain Intensity 5 - Physical Exam General Appearance: mild distress, thin Eye Exam: right eye: corneal abrasion, bilateral eye: PERRL, EOMI Ears, Nose, Throat Exam: normal ENT inspection Neck Exam: normal inspection SpO2: 100 - Course Nursing assessment & vital signs reviewed: Yes Ordered Tests: Medication Summary Discontinued Medications Generic Name Dose Route Start Last Admin Trade Name Freq PRN Reason Stop Dose Admin Eye Irrigation Solution Confirm 09/25/22 00:32 Sodium/Potassium/Dagoberto/Magnesium 30 Ml Eye Wash Administered 09/25/22 00:33 Dose 30 ml .ROUTE .STK-MED ONE Eye Irrigation Solution 15 ml 09/25/22 01:13 09/25/22 01:14 Sodium/Potassium/Dagoberto/Magnesium 30 Ml Eye Wash OP 09/25/22 01:14 15 ml STAT ONE Administration Fluorescein Sodium Confirm 09/25/22 00:32 Fluorescein Sodium 1 Mg/Strip Strip Administered 09/25/22 00:33 Dose 1 mg OP .STK-MED ONE Fluorescein Sodium 1 mg 09/25/22 01:13 09/25/22 01:14 Fluorescein Sodium 1 Mg/Strip Strip OP 09/25/22 01:14 1 mg STAT ONE Administration Tetracaine HCl Confirm 09/25/22 00:32 Tetracaine Hcl/Pf 4 Ml Bottle Administered 09/25/22 00:33 Dose 4 ml OP .STK-MED ONE Tetracaine HCl 4 ml 09/25/22 00:53 09/25/22 00:56 Tetracaine Hcl/Pf 4 Ml Bottle OP 09/25/22 00:54 4 ml STAT STA Administration - Progress Progress: improved Progress Note: Fluorescein staining of the right eye under cobalt blue lighting revealed a large corneal abrasion at the 1 o'clock position in relation to the patient's pupil. No foreign body was appreciated and pain was significantly improved after tetracaine was applied. Patient will be discharged with Cipro and ketorolac eyedrops. Patient was encouraged to follow-up with packing line operator within 48 to 72 hours. Counseled pt/family regarding: diagnosis, need for follow-up Medical Desision Making - Risk of complications The pt has a mod risk of morbidity or mortality based on: Need for prescription drug management - Departure Departure Disposition: Home Clinical Impression: Corneal abrasion, right Condition: Good Critical Care Time: No Referrals: DALIA SÁNCHEZ MD [Primary Care Provider] - Follow up/PCP as directed Instructions: Corneal Abrasion (DC) Additional Instructions: Return to the Emergency Department if you experience discharge from your eye, worsening eye redness, eye pain, vision changes, headache, fever, vomiting, or any other concerning symptoms. Prescriptions: Ketorolac Tromethamine 0.5% [Acular OPTH IVA] 1 drop OP Q6H PRN 3 Days #5 ml PRN Reason: Pain Ciprofloxacin HCl 2 drops OP Q6H 5 Days #2.5 ml
[2022-09-25] MEDS ORDERED: TETRACAINE 0.5% STERI-UNIT SOL OP STA (00:53)
[2022-09-25 00:59] VITALS: BP 109/67; PULSE 75
[2022-09-25 01:02] VITALS: O2SAT 100
[2022-09-25] MEDS ORDERED: Eye-Stream Solution OP ONE (01:13)
== END 2022-09-25 01:28 | disposition home or self-care (01) ==
LOC: ED 00:14
DX: S05.01XA Injury of conjunctiva and corneal abrasion without foreign body, right eye, initial encounter (principal); W54.1XXA Struck by dog, initial encounter; Y92.003 Bedroom of unspecified non-institutional (private) residence as the place of occurrence of the external cause; H57.11 Ocular pain, right eye; Z79.899 Other long term (current) drug therapy; Z72.0 Tobacco use
CPT/HCPCS: 99281; A9270-GY

== ENCOUNTER 2023-05-22 05:54 | Day surgery (SDC) | payer MEDICARE ==
[2023-05-22] MEDS ORDERED: Lactated Ringers 1,000 ML IV SCH (06:30)
[2023-05-22 06:54] VITALS: RESP 18
[2023-05-22] MEDS ORDERED: Versed 2 MG/2 ML Injection ONE (07:57)
[2023-05-22] MEDS ORDERED: DIPRIVAN 200 MG/20 ML IV ONE ×2 (07:57→08:23)
[2023-05-22 09:13] VITALS: O2SAT 100
[2023-05-22 09:29] VITALS: BP 103/66; PULSE 79; TEMP 97.8
--- NOTE | 2023-05-22 09:36 | OP ---
SURGERY DATE/TIME: 05/22/2023 0843 PREOPERATIVE DIAGNOSIS: Screening exam. POSTOPERATIVE DIAGNOSIS: Rectosigmoid polyps and poor prep. PROCEDURE: Colonoscopy. SURGEON: Dr. Garces. ANESTHESIA: Medications given by anesthesia department. HISTORY: The patient is a 62-year-old white female here for screening colon examination. The patient was appraised of the risks of the procedure including the risk of perforation, phlebitis, untoward reaction to medication, bleeding and missed lesions. The patient verbalized her understanding and desired to have the procedure performed. DESCRIPTION OF PROCEDURE: The patient was given the medications by the anesthesia department. She had continuous pulse oximetry, ECG monitoring and intermittent blood pressure monitoring during the examination. She was placed in the left lateral decubitus position. A digital rectal examination was performed and revealed normal anal sphincter tone and no masses. The flexible Olympus pediatric colonoscope was used to intubate the rectum. A view of the colon was developed sequentially to the cecum. Upon insertion and withdrawal was noted some polyps in the rectosigmoid area which might most likely be hyperplastic. With no other mucosal lesions being noted, the scope was removed from the patient. The patient was taken to the recovery room in good condition. The prep was noted to be poor with roughly nearly 2 liters of liquid stool removed from the colon during the examination.
== END 2023-05-22 09:31 | disposition home or self-care (01) ==
LOC: SDC 05:54
PROVIDERS: ATTEND Family Medicine
DX: Z12.11 Encounter for screening for malignant neoplasm of colon (principal); K63.5 Polyp of colon
CPT/HCPCS: J2250; J2704